=== PATIENT | male | born 1960 | race Caucasian/White ===

== ENCOUNTER 2025-06-26 17:49 | Emergency (ER) | payer SELFPAY ==
[2025-06-26 17:51] VITALS: BP 162/98; PULSE 82; RESP 18; TEMP 36.8; O2SAT 100; BMI 31.2
--- NOTE | 2025-06-26 19:40 | CT_ITS ---
PROCEDURE: CT SINUS/FACIAL BONE WITHOUT CONTRAST 06/26/2025 REASON FOR EXAM: TRAUMA TO MANDIBLE TECHNIQUE: Procedure Code: CTSI Modality: CT Procedure: SINUS/FACIAL BONE Coronal and Sagittal reconstruction series were provided. One or more dose reduction techniques were used (e.g., Automated exposure control, adjustment of the mA and/or kV according to patient size, use of iterative reconstruction technique). RADIATION DOSE SUMMARY: CTDlvol: 29.38 mGy DLP: 819.26 mGycm COMPARISON: None available. FINDINGS: Mildly displaced acute comminuted/segmental fracture of the anterior mandible, involving the angle of the right mandible, and the anterior body of the left mandible. No additional acute fracture or dislocation visualized. There is metallic plate and screw fixation hardware along the anterior aspect of the left mandibular ramus. Intact bilateral temporomandibular joints. Edentulous maxilla and mandible. Maxillary removable dentures in place. Well- aerated paranasal sinuses and bilateral mastoid air cells. Grossly unremarkable orbits. Prior left orbital cataract surgery. Mild soft tissue swelling/contusional changes along the perimandibular soft tissues. Small subcentimeter subcutaneous hematoma overlying the angle of the right mandible. CT/Sinus/Facial Bone IMPRESSION: Mildly displaced acute comminuted/segmental fracture of the anterior mandible, as above. Reading Location: [id number]
[2025-06-26 19:51] VITALS: BP 156/96; PULSE 89; RESP 14; O2SAT 94
[2025-06-26 21:00] VITALS: BP 158/100; PULSE 87; RESP 12; O2SAT 96
--- NOTE | 2025-06-26 21:03 | EX.ED.GENINJ ---
HPI History of Present Illness Chief Complaint: Fall Informant: patient and spouse/S.O. Narrative Narrative: Patient is a 64-year-old male with a history of DM and depression presenting with jaw pain following a fall from a step ladder. - Fall occurred a couple of hours ago. - Reports hitting jaw on a piece of wood during the fall. - Describes jaw pain as localized, without feeling of misalignment. - Reports a mild headache. - Denies neck pain. - Denies back, arm, or abdominal pain. - Reports mild soreness in the lateral right thigh, but able to ambulate without pain or difficulty; denies pain in the knee, groin, or hip. - Fall was approximately 3 feet; landed on the right side on the floor. - Denies use of anticoagulants. - Medical history includes DM, managed with esomeprazole and glipizide, and depression. [facility] Medical History Anxiety Depression Diabetes Medical History no medical history Home Medications ?Medication ?Instructions ?Recorded ?Last Taken ?Type glipizide 2.5 mg tablet 2.5 mg PO BID 06/26/25 Unknown History metformin 1,000 mg tablet 1,000 mg PO BID 06/26/25 Unknown History mirtazapine 30 mg tablet 30 mg PO DAILY 06/26/25 Unknown History olanzapine 10 mg tablet 10 mg PO DAILY 06/26/25 Unknown History venlafaxine 25 mg tablet 25 mg PO DAILY 06/26/25 Unknown History Allergy/AdvReac Type Severity Reaction Status Date / Time No Known Allergies Allergy Verified 06/26/25 17:51 Family History no significant family his Surgical History no surgical history Social History Smoking Status: Never smoker ROS ROS ED Constitutional Constitutional ED: Denies chills or fever(s) Eyes Eyes: Denies change in vision or diplopia ENT ENT ED: Reports other Details: jaw pain, bilat; no pain at TMJ/ears area ; Denies rhinorrhea or sore throat Cardiovascular Cardiovascular: Denies chest pain or palpitations Respiratory/Chest Respiratory/Chest: Denies cough or dyspnea Gastrointestinal Gastrointestinal: Denies abdominal pain, diarrhea, nausea or vomiting Genitourinary Genitourinary ED: Denies dysuria or hematuria Musculoskeletal Musculoskeletal: Denies back pain or neck pain Integumentary Denies abscess or rash Neurologic Neurologic: Denies headache(s), paresthesias or weakness Psychiatric Psychiatric: Denies anxiety or suicidal thoughts EXAM Physical Exam Const Vital Signs: 06/26/25 17:51 06/26/25 18:34 06/26/25 19:51 Temperature 98.2 F Temperature Source Oral Pulse Rate 82 89 Respiratory Rate 18 14 Respiratory Effort Normal Respiratory Depth Normal Respiratory Pattern Normal Blood Pressure 162/98 H 156/96 H Blood Pressure Mean 119 116 Pulse Ox 100 94 Oxygen Delivery Method Room Air Room Air Room Air 06/26/25 21:00 Temperature Temperature Source Pulse Rate 87 Respiratory Rate 12 Respiratory Effort Respiratory Depth Respiratory Pattern Blood Pressure 158/100 H Blood Pressure Mean 119 Pulse Ox 96 Oxygen Delivery Method Room Air Positive well nourished and well developed General Appearance ED: well developed and NAD HEENT Reports moist mucous membranes HEENT Narrative: Tender both sides of mandible, there is an abrasion/hematoma right mandibular body area. There is no laceration. Limited range of motion no malocclusion but he does not have indentation in the mandibular rows. No TMJ tenderness. Significant trismus, the mandibular gingiva and the maxillary dentition appear unremarkable. There is no blood or bleeding. No other signs of HEENT trauma. trauma Eyes PERRL and EOMs intact bilaterally Neck full ROM and supple Chest Wall inspection of chest normal and palpation of chest normal Resp normal respiratory effort and clear to auscultation bilaterally Cardio regular rate, regular rhythm and no murmurs GI non-tender and non-distended Auscultation: normoactive bowel sounds Palpation: soft Back/Spine no CVA tenderness General Back: other FROM Extremity normal to inspection and full ROM Extremity Narrative: Right distal thigh nontender all compartment soft and nondistended full range of motion without difficulty or limitation or paresthesias. General Extremety ED: Negative for edema, pulses abnormal or tenderness General Extremity: Negative for edema or pulses abnormal Neuro oriented x3, CN's II-XII intact bilaterally, no sensory deficits noted and gait normal Sensorium / Orientation: awake and alert Motor Exam: strength 5/5 throughout Skin no rashes or lesions noted and no wounds MDM MDM MDM Narrative Medical decision making narrative: He was given analgesics while we performed a CT of the face due to his localized trauma. The CT shows a segmental anterior mandible fracture with several fracture lines. he has an old surgical area that does not appear to be involved. There is no evidence of an open fracture, and no bleeding or lesions inside the mouth, although he does have some trismus, limiting the exam. The mandibular gingiva and the upper dentition appear to be intact. We have no plastics or otolaryngology coverage at this time or throughout the weekend. Given the high risk for needing surgery, I believe the patient should be transferred to a higher level of care. This was discussed with the EM physician and maxillofacial trauma service via the transfer center at [facility]. They have accepted the patient for an ER-to-ER transfer. Patient was given multiple doses of pain and nausea medication in addition to some IV fluids. Lab Data Attestation: I reviewed the patient's lab results. Labs: Laboratory Results - last 24 hr 06/26/25 21:09 WBC 13.2 H RBC 4.79 Hgb 13.4 Hct 41.3 MCV 86.2 MCH 28.0 MCHC 32.4 RDW Std Deviation 40.3 RDW Coeff of Karen 12.9 Plt Count 260 MPV 9.7 Immature Gran % (Auto) 0.400 Neut % (Auto) 80.5 H Lymph % (Auto) 10.[address] [place] % (Auto) 7.8 Eos % (Auto) 0.3 Baso % (Auto) 0.5 Absolute Neuts (auto) 10.6 H Absolute Lymphs (auto) 1.39 Nucleated RBC % 0 Sodium 136 Potassium 4.3 Chloride 99 Carbon Dioxide 28.0 Anion Gap 9 BUN 18 Creatinine 0.81 Estim Creat Clear Calc 102.05 Est GFR (MDRD) Non-Af 98 BUN/Creatinine Ratio 21.7 H Glucose 213 H Calcium 9.4 Radiography Diagnostic Testing: Clinical Impression(s) from Imaging Studies Facial/Sinus 06/26/25 19:40 IMPRESSION: Mildly displaced acute comminuted/segmental fracture of the anterior mandible, as above. Reading Location: [id number] I reviewed the images and report which I agree with. Management Discussion w/another healthcare provider: Imagery Analyst (see MDM) Discharge Plan Triage Chief Complaint: Fall ED Provider: Terrance Benoit Dx/Rx/DC Orders Clinical Impression: Closed fracture of mandible, multiple sites, Accidental fall from ladder Prescriptions: No Action metformin 1,000 mg tablet 1,000 mg PO BID glipizide 2.5 mg tablet 2.5 mg PO BID venlafaxine 25 mg tablet 25 mg PO DAILY olanzapine 10 mg tablet 10 mg PO DAILY mirtazapine 30 mg tablet 30 mg PO DAILY Primary Care Provider: Jasen Moran Referrals: Jasen Moran DO [Primary Care Provider, Family Practice] Print Language: [place] Disposition Disposition: Acute Care Hospital Discharge Location: [facility]
[2025-06-26] MEDS: 0.9% Normal Saline (1000mL) 1,000 ML 150 ML IV (21:12)
[2025-06-26 21:19] LABS: Hematocrit 41.3 % (40-54); Hemoglobin 13.4 g/dL (13.0-16.5); Immature Granulocytes Count 0.050 X10^3/uL (0.0-0.0); Mean Corp Hgb Conc 32.4 g/dL (32-36); Mean Corpuscular Volume 86.2 fL (80-94); Mean Platelet Vol. 9.7 fl (6.2-12.0); NRBC Flagged by Analyzer 0 % (0-5); Platelet Count 260 K/mm3 (150-450); RBC Distribution Width CV 12.9 % (11.6-14.6); RBC Distribution Width SD 40.3 fl (35.1-43.9); Red Blood Count 4.79 M/mm3 (4.6-6.2); White Blood Count 13.2 K/mm3 (4.4-11.0)
[2025-06-26 21:43] LABS: Anion Gap 9 (5-15); BUN 18 mg/dL (4-19); BUN/Creat Ratio 21.7 RATIO (10-20); Calcium,Total 9.4 mg/dL (7.6-11.0); Carbon Dioxide 28.0 mmol/L (21.0-32.0); Chloride 99 mmol/L (98-108); Estimated Creatinine Clearance 102.05 ml/min (50-250); Glucose 213 mg/dL (70-99); Potassium 4.3 mmol/L (3.3-5.1)
[2025-06-26 22:45] VITALS: BP 154/94; PULSE 70; RESP 16; TEMP 37.1; O2SAT 100
--- NOTE | 2025-06-26 23:02 | ED.RN ---
[facility] ER[facility] AT [facility]. NO FURTHER QUESTIONS BY THE RECEIVING NURSE.
== END 2025-06-26 23:04 | disposition short-term general hospital (02) ==
PROVIDERS: Emergency Provider Emergency Medicine; PCP Family Medicine; Visit Provider Emergency Medicine
DX: S02.69XA Fracture of mandible of other specified site, initial encounter for closed fracture (principal); E11.9 Type 2 diabetes mellitus without complications; M79.651 Pain in right thigh; W11.XXXA Fall on and from ladder, initial encounter; F32.A Depression, unspecified; F41.9 Anxiety disorder, unspecified; Z79.84 Long term (current) use of oral hypoglycemic drugs; Z79.899 Other long term (current) drug therapy
CPT/HCPCS: 70486; 80048; 85025; 96361; 96374; 96375; 96376; 99284; A4216; J2405